=== PATIENT | male | born 1945 | race Caucasian/White ===

== ENCOUNTER 2017-04-08 11:15 | Observation (INO) | payer OTHER ==
[2017-04-08] VITALS (8 sets, daily range): BP systolic 140–164; BP diastolic 60–77; PULSE 57–71; TEMP 36.5–36.9; O2SAT 94–98; Ht 177.8 cm; Wt 66.9 kg
[~2017-04-08] VITALS: Ht 177.8 cm; Wt 66.9 kg
--- NOTE | 2017-04-08 11:35 | History & Physical Bridge Note ---
H&P Re-Evaluation Bridge Note: I have examined the patient, reviewed the History & Physical and in the interval since the performance of the History & Physical I have noted the following changes of clinical significance: No changes noted
--- NOTE | 2017-04-08 11:36 | Procedure Note ---
Pre-Mod Sedation Assessment General Date of Moderate Sedation: Apr 08, 2017. Review Cardiovascular: regular rate, rhythm Abdomen: soft Lungs: lungs clear Airway Class: II Pre-Sedation Airway Assessment Oral Cavity: Dental Abnormalities Short Thick Neck: No Hx of Sleep Apnea: No Smoking Status: Former Smoker Mallampati Classification: Class II ASA Classification: Class II Procedure Planning Contraindications-for Mod Sed: None Yes Notes The planned sedation has been discussed with the patient and consent obtained. I have identified the patient, determined the appropriateness of sedation and have assessed the patient immediately prior to the procedure. All medicine(s) and interventions are by my order.
[2017-04-08] MEDS ORDERED: NTRGSL/4 UT (11:55)
[2017-04-08] MEDS ORDERED: LISI-729 PO (11:55)
[2017-04-08] MEDS ORDERED: METO1TAB31 PO (11:55)
[2017-04-08] MEDS ORDERED: ATOR10TA88 PO (11:55)
[2017-04-08] MEDS ORDERED: ASPI81TA28 PO (11:55)
[2017-04-08] MEDS ORDERED: CEFAZOLIN 1000MG/55 ML D5W IV SCH (12:00)
[2017-04-08] MEDS ORDERED: LIDOCAINE HCL 1% 20 ML VIAL ONE (12:56)
[2017-04-08] MEDS ORDERED: BACITRACIN 50000 UNIT VIAL ONE (12:56)
[2017-04-08] MEDS ORDERED: BUPIVACAINE 0.5 % 5 MG/1 ML MPF 30ML VIAL ONE (12:56)
[2017-04-08] MEDS ORDERED: FENTANYL CITRATE INJ 50 MCG/1 ML 2 ML VIAL ONE ×2 (13:22→13:50)
[2017-04-08] MEDS ORDERED: MIDAZOLAM HCL 5 MG/ML 1 ML VIAL ONE ×2 (13:22→13:50)
--- NOTE | 2017-04-08 14:44 | Procedure Note ---
Post-Mod Sedation Assessment General Date of Moderate Sedation Apr 08, 2017. Vital Signs: Vital Signs Past 12 Hours Date Time Temp Pulse Resp B/P (MAP) Pulse Ox O2 Delivery O2 Flow Rate FiO2 04/08/17 14:38 60 14 122/70 (87) 98 Room Air 04/08/17 12:25 36.6 18 140/60 (86) 98 Room Air 04/08/17 12:06 36.6 71 18 140/60 (86) 98 Room Air Review - Discharge Criteria Vital Signs Stable: Yes Alert/Oriented/Conversant: Yes Returned to Baseline Mental St: Yes Nausea Absent/Minimal: Yes Pain/Discomfort/Absent/Minimal: Yes Normal/Baseline Respirations: Yes Active Bleeding?: No Pt Received D/C Instructions: N/A Prescriptions Given: None Specific Proced. D/C Criteria Distal Pulses Present (Cardiac: N/A Groin site assessed-Card Cath: N/A Voided Prior To Discharge: N/A Discharged Patients Adult Escort/Transportation: N/A
[2017-04-08] MEDS ORDERED: ACETAMINOPHEN 325 MG TAB PO PRN (14:45)
[2017-04-08] MEDS ORDERED: NITROGLYCERIN 0.4 MG SL PER TAB CHARGE UT SCH (14:45)
--- NOTE | 2017-04-08 14:51 | [facility] Post Operative Brief Note ---
Immediate Operative Summary Operative Date Apr 08, 2017. Pre-Operative Diagnosis ICM, SINUS BRADYCARDIA, SYNCOPE Post-Operative Diagnosis SAME Procedure(s) Performed DUAL CHAMBER RATE RESPONSIVE ICD WITH PERIPHERAL VENOGRAM Surgeon LUPIS CLOUD Carton Maker Surgeon(s) NONE Estimated Blood Loss <10CC Findings DATE OF OPERATION: 04/08/2017 PREOPERATIVE DIAGNOSES: Ischemic cardiomyopathy, syncope, Sinus bradycardia POSTOPERATIVE DIAGNOSES: Same. PROCEDURE: Dual chamber rate responsive implantable cardiac defibrillator under fluoroscopic guidance along with peripheral venogram. SURGEON: Lupis Cloud DO METER INSTALLER AND REMOVER: None. ANESTHESIA: Monitored conscious sedation given under my supervision, administered by Ashley Mireles, start time 13:32, end time 14:38, a total of 6 mg of Versed and 150 mcg of fentanyl. INTRAVENOUS FLUIDS: 300 mL. CONTRAST: 10 mL of IV contrast. COMPLICATIONS: None. CONDITION: Stable. BLOOD LOSS: Less than 10 mL. URINE OUTPUT: Not applicable. SPECIMENS: None. FINDINGS: None. DRAINS: None. INDICATIONS FOR PROCEDURE: This is a 72-year-old gentleman with a past medical history of ischemic cardiomyopathy, ejection fraction 35%, syncope- currently wearing a lifevest, sinus bradycardia, Non specific IVCD, HTN, HLD, coronary artery disease h/o [place] in 1991 no intervention, history of tobacco use. Due to the ICM and syncope and SB recommend ICD. CONSENT: The patient was informed of the risks, benefits, alternatives to the procedure. Risks include but not limited to sudden cardiac ; cardiac arrhythmias; cerebrovascular accident; myocardial infarction; injury to the blood vessels, chamber of the heart, lungs, bleeding and infection. The patient understood these risks and agreed to go to the procedure as planned. Informed consent was obtained. DESCRIPTION OF THE PROCEDURE: The patient was brought into the electrophysiology lab in a fasting state. He was connected to continuous cardiac monitoring. Timeout was performed to ensure patient's identity and procedure correctly. The patient received prophylactic antibiotics prior to incision. He was given monitored conscious sedation throughout the procedure for patient's comfort level. [place] precautions were maintained throughout the procedure. A 10 mL of 1% lidocaine, bupivacaine mixture were given in the left deltopectoral. Incision was made in the left deltoid repair. Blunt dissection was performed down to identify the cephalic vein; however, none could be identified, so a peripheral venogram was performed using 10 mL of IV contrast diluted in 10 mL of saline followed by 20 mL flush. The axillary vein was then obtained with axillary venous access stick. A 9n 8-Surinamese sheath was inserted over the guidewire without any resistance. The dilator was removed and a second guidewire was inserted through the 8-Surinamese sheath without any resistance and the sheath was removed. A 9.5-Surinamese sheath was inserted over one of the guidewires without any resistance. The guidewire and dilator were removed. The right ventricular defibrillator lead was advanced into the right ventricle and positioned into the right ventricular apex under fluoroscopic guidance. There was adequate pacing and sensing thresholds and no diaphragmatic stimulation with high output pacing. The sheath was peeled away and lead was fixated to pectoralis muscle using 0 silk suture. The 8-Surinamese sheath was then advanced over the retained guidewire without any resistance. The guidewire and dilator were removed. The right atrial pacing lead was advanced into the right atrium and positioned into the right atrial appendage under fluoroscopic guidance. There was adequate pacing and sensing thresholds. There was no diaphragmatic stimulation when we paced briefly at 10 volts. The sheath was peeled away and lead was fixated to pectoralis muscle using 0 silk suture. A pacemaker pocket was created using blunt dissection over the pectoralis muscle within the pectoralis fascia. The pocket was flushed with copious amounts of bacitracin saline wash and inspected for hemostasis. The defibrillator generator was then attached to the leads making sure that the pins were in appropriate position, passed the set screws and the set screws were all tightened. The defibrillator was placed in the pocket, making sure that the leads were lying flat beneath the device. The incision was closed in a 3-layer fashion using 2-0 Vicryl suture, followed by a 3-0 Vicryl suture, followed by a 4-0 Monocryl running stitch and Dermabond applied. EQUIPMENT: 1. Defibrillator generator is an [employer] XT DR Virk [id number], serial number [id number]. 2. Right atrial lead: Medtronic 5076-52 cm, serial number [id number]. 3. Right ventricular lead: Medtronic 6935-62 cm, serial number [id number]. INTRAOPERATIVE TESTIN. Right atrial lead: P-wave 2.4 millivolts, impedance 578 ohms, threshold 0.7V at 1.3ms. 2. Right ventricular lead: R-wave 3.3millivolts, impedance 614 ohms, threshold 0. volts at 0.7 milliamps. FINAL MEASUREMENTS THROUGH THE DEVICE: 1. Right atrial lead: Fib waves 1.4millivolts, impedance 456 ohms; threshold 1.0V at 0.4ms. 2. Right ventricular lead: R-wave 5.1 millivolts, impedance 551 ohms, threshold 0.75 volts at 0.4 milliseconds. FINAL PARAMETERS: 1. MVP-R 60/120. Right atrial and right ventricular amplitude 3.5 volts, pulse width 0.4 milliseconds, sensitivity 0.3 millivolts. 2. VF zone at 200 beats per minute, . 3. RA and RV amplitude 3.5V, pulse width 0.4ms; sensitivity 0.3mV INTERVAL IMPRESSION: Successful implantation of a dual chamber implantable cardiac defibrillator rate responsive secondary to ischemic cardiomyopathy and sinus bradycardia. PLAN: Monitor the patient overnight, 12-lead ECG, chest x-ray, continue his home medications. He is not allowed to lift the left elbow over the left shoulder for 1 month and he cannot lift more than 10 pounds with the left arm for 2 weeks. He can shower tomorrow, let water run over the incision and do not scrub it. He will follow up in our [place] device clinic in 7-10 days for device and wound check. Fluids (cc crystalloids) 300 Specimens none Anesthesia 6mg versed and 150mcg fentanyl Complication(s) None Disposition PCU
--- NOTE | 2017-04-08 15:07 | Discharge Instructions ---
Discharge Instructions Date of Service Apr 08, 2017. Admission Reason for Admission: Ischemic Cardiomyopathy Discharge Discharge Diagnosis / Problem: ICM s/p dual chamber ICD, Incidental cystic bleb on CXR , CT Discharge Goals Goal(s): Improve function Activity Recommendations Activity Limitations: as noted below Lifting Limitations: no more than 10 pounds (with left arm for 2 weeks; do not lift the left elbow over the left shoulder for 1 month) Exercise/Sports Limitations: as tolerated May Resume Sexual Activity: after one week Shower/Bathe: tomorrow Driving or Machine Use: resume 1 day after discharge . Instructions / Follow-Up Instructions / Follow-Up ACTIVITY RECOMMENDATIONS: * Do not raise affected arm over head for 4 weeks. SPECIAL CARE INSTRUCTIONS: * If bleeding occurs, apply direct pressure to area for 5 minutes. * Call your doctor if you have severe pain, fever, drainage or bleeding at site. * Keep dry for 24 hours then remove. * Keep any scheduled doctor's appointment. * Implant Card - hand held device with website information given. SKIN IRRITATION: * You may experience some redness and/or swelling in the area where radiation was administered. If any skin irritation occurs, please contact your family physician. FOLLOW UP : Case discussed with pulmonary med. CXR , CT finding likely a bleb. There is no clinical evidence of infection. This is not related to the AICD implant and is related to his history of emphysema. Outpatient non contrast CT of chest recommended as outpatient in 4 weeks which can be performed in [place] with primary slab puller Dr Weeks or differed to PCP. Patient already has a visit with Dr Weeks, so I will contact her to coordinate. Stable for Discharge. APPOINTMENTS: 04/17/2017 10:25 AM Dana Weeks MD Cardiology [facility] Current Hospital Diet Patient's current hospital diet: Low Sodium Diet (2gm Na), AHA Diet (Heart Healthy) Discharge Diet Recommended Diet: AHA Diet (Heart Healthy), Low Sodium Diet (2gm Na) Procedures Procedures Performed: DUAL CHAMBER RATE RESPONSIVE ICD WITH PERIPHERAL VENOGRAM Pending Studies Studies pending at discharge: no Medical Emergencies . Who to Call and When: Medical Emergencies: If at any time you feel your situation is an emergency, please call 911 immediately. . Non-Emergent Contact Non-Emergency issues call your: Bar Porter . . "Provider Documentation" section prepared by Lupis Cloud. . VTE Core Measure Inpt VTE Proph given/why not?: Treatment not indicated
--- NOTE | 2017-04-08 15:12 | Discharge Summary ---
Discharge Summary Date of Service Apr 08, 2017. Discharge Summary Admission Date: Discharge Date: Apr 09, 2017 Discharge Disposition: Home Principal Diagnosis: ICM s/p dual chamber ICD Secondary Diagnoses/Problems: sinus bradycardia syncope non-specific IVCD CAD h/o [place] in 1991 no intervention HTN HLD h/o Tobacco use Procedures: dual chamber rate responsive ICD under fluoroscopic guidance with peripheral venogram Medication Reconciliation Continued Medications: Aspirin (Aspirin Ec) 81 Mg Tab 81 MG PO DAILY Atorvastatin (Lipitor) 10 Mg Tab 10 MG PO DAILY, TAB Lisinopril (Prinivil) 5 Mg Tab 5 MG PO DAILY, TAB Metoprolol Succinate (Toprol Xl) 25 Mg Tab 0.5 TAB PO DAILY for 30 Days, #15 TAB 5 Refills Nitroglycerin (Nitrostat) 0.4 Mg Tab 0.4 MG UT PRN for Chest Pain, BTL Admission Information Physical Exam (per Admitting): aaox3, NAD NC/AT, EOMI Supple, No JVD Nrl S1/S2, No murmur CTA b/l No W/r/r soft NT/ND No edema b/l No focal deficits skin intact Hospital Course Pt admitted for elective dual chamber ICD due to ICM and sinus bradycardia. He underwent procedure without any complications. He was monitored overnight. Post procedure CXR revealed a 3.5 cm cyst consistant with a bleb related to his emphysema. This was an incidental findings and not due to his AICD implant. There is no clinical evidence of infection. At Ct of the chest was obtained and pulmonary medicine saw the patient in consult and recommended follow up non contrast CT of chest in 4 weeks as outpatient for follow up. Total time spent on discharge = 30 minutes This includes examination of the patient, discharge planning, medication reconciliation, and communication with other providers. Discharge Instructions ACTIVITY RECOMMENDATIONS: * Do not raise affected arm over head for 4 weeks. SPECIAL CARE INSTRUCTIONS: * If bleeding occurs, apply direct pressure to area for 5 minutes. * Call your doctor if you have severe pain, fever, drainage or bleeding at site. * Keep dry 24 hours. * Keep any scheduled doctor's appointment. * Implant Card - hand held device with website information given. SKIN IRRITATION: * You may experience some redness and/or swelling in the area where radiation was administered. If any skin irritation occurs, please contact your family physician. FOLLOW UP VISIT: Keep any scheduled doctor appointments. Patient has cardiology visit with his primary bed maker : 04/17/2017 10:25 AM Dana Weeks MD Cardiology [place] [facility]
[2017-04-08] MEDS ORDERED: IV FLUIDS COMPLETED PRN (16:00)
[2017-04-09 03:13] VITALS: BP 147/67; PULSE 59; TEMP 37.1; O2SAT 93
[2017-04-09 08:01] VITALS: BP 154/65; PULSE 68; TEMP 36.5; O2SAT 94
--- NOTE | 2017-04-09 08:20 | DIAGNOSTIC IMAGING REPORT ---
CHEST 2 VIEWS ROUTINE CLINICAL HISTORY: 72 years-old Male presenting with EXACT TIME ORDERED Evaluate for pneumothorax and lead placement. TECHNIQUE: PA and lateral views of the chest were obtained. COMPARISON: None. FINDINGS: Left-sided implanted cardiac defibrillator with leads to the right atrium and right ventricular apex. Median sternotomy wires and mediastinal surgical clips noted. Cardiomediastinal silhouette normal. Air-fluid level noted within a cystic appearing lesion in the right lower lobe, which measures 4.8 cm. No pleural effusion. No pneumothorax. Osseous structures and upper abdomen normal. IMPRESSION: 1. No pneumothorax. Appropriately positioned ICD. 2. Cystic lesion in the right lower lobe containing an air-fluid level. In the setting of infectious symptoms, this is concerning for a lung abscess. Other differential considerations include hemorrhage within a cavitary space. Further evaluation with CT to be considered. The report will be called/faxed according to standard departmental protocol. Electronically signed by: Christopher Larry M.D. 04/09/2017 8:19 AM Dictated Date/Time: 04/09/2017 8:15 AM
[2017-04-09] MEDS ORDERED: ATORVASTATIN 10 MG TAB PO SCH (09:00)
[2017-04-09] MEDS ORDERED: ASPIRIN 81 MG ECTAB PO SCH (09:00)
[2017-04-09] MEDS ORDERED: LISINOPRIL 5 MG TAB PO SCH (09:00)
[2017-04-09] MEDS ORDERED: METOPROLOL SUCC 25MG EXT REL TAB PO SCH (09:00)
[2017-04-09] MEDS ORDERED: OPTIRAY 320 IV PRN (10:15)
--- NOTE | 2017-04-09 10:18 | Cardiology Follow-Up ---
Subjective General Date of Service: Apr 09, 2017. Chief Complaint: follow up AICD placement Pt evaluation today including: conversation w/ patient, physical exam History of Present Illness The patient is a 72 year old male who had undergone elective implant of a dual chamber Medtronic AICD yesterday, 04/08/17, due to his diagnosis of coronary heart disease, ischemic heart myopathy with an ejection fraction of 35% and syncope. The patient tolerated the procedure well yesterday. He is in good spirits today and feels well and is eager to be discharged. His postprocedure device check reveals stable findings. Telemetry reveals sinus rhythm with occasional atrial pacing which is consistent with the data from his device interrogation. Chest x-ray reveals appropriate lead placement. Chest x-ray also reveals an incidental finding of an air-fluid level noted within a cystic appearing lesion in the right lower lobe, which measures 4.8 cm. Allergies Coded Allergies: No Known Allergies (Unverified , 04/08/17) Social History Smoking Status: Current Some Day Smoker Hx Tobacco Use In Past Year?: Yes Hx Alcohol Use - Type And Amou: No Hx Substance Use - Type And Am: No Physical Exam Vital Signs Last Vital Signs Documentation Date Time Temp Pulse Resp B/P (MAP) Pulse Ox O2 Delivery O2 Flow Rate FiO2 04/09/17 08:01 36.5 68 16 154/65 (94) 94 Room Air Physical Exam Constitutional: Level of Distress: NAD ENMT: normal ENT inspection Neck: supple, trachea midline Lungs: Auscultation: no wheezing, no rales/crackles, no rhonchi Cardiovascular: Heart Auscultation: RRR, no murmurs, no rubs, no gallops Abdomen: Inspection & Palpation: soft, non-distended Extremities: no cyanosis, no edema Neurologic: Gait & Station: pertinent finding (focal neurologic deficits patient is awake and conversant and follows commands) Additional Comments: Chest: Left infraclavicular device pocket site is stable with mild incisional erythema and no drainage, no hematoma. Assessment and Plan Assessment and Plan Impression: 72-year-old male 1. Postoperative day one status post dual-chamber Medtronic AICD -Chest x-ray reveals appropriate lead placement and no pneumothorax -Chest x-ray also reveals an incidental finding of an air-fluid level noted within a cystic appearing lesion in the right lower lobe, which measures 4.8 cm. 2. History of coronary heart disease, ischemic cardiomyopathy, LVEF 35%, syncope 3. History of multivessel disease, status post CABG in 2010 4. Ongoing cigarette smoker Discussion/plan: The patient describes no infectious symptoms. He denies any cough. He denies any fevers. Most of his medical care has taken place in [place] and in [place]. I reviewed his outpatient [facility] chart and he has not had any recent CT of the chest. His last chest x-ray was a portable PA study in 2014 that revealed no significant findings, and AP and lateral chest x-ray had last been performed in 2011. I discussed the findings with Dr. Larry of radiology and will proceed with a contrast-enhanced CT of the chest. I'm also going to consult pulmonary medicine for further input. The patient is stable for discharge from a post-device implant standpoint however given the incidental finding on the chest x-ray, I told the patient he needs to stay in the hospital for initial workup. tSar Weathers DO, FACC, FACOI Associate Dice Dealer [facility], [facility] Laboratory Results Last 24 Hours Test 04/08/17 11:51 Bedside Glucose 116 mg/dl
--- NOTE | 2017-04-09 11:08 | DIAGNOSTIC IMAGING REPORT ---
(CHEST) THORAX WITH CLINICAL HISTORY: 72 years-old Male presenting with abnormal chest x -ray, cystic finding. TECHNIQUE: Multidetector CT angiography was performed after the administration of intravenous contrast. IV contrast: 93 mL of Optiray 320. COMPARISON: Correlation made to chest x-ray performed the same day. CT DOSE: The estimated cumulative dose is 323.34 mGy.cm. FINDINGS: Hand Sizer topogram: Left-sided implanted cardiac defibrillator with leads to the right atrium and right ventricular apex. Median sternotomy wires also noted. On soft tissue windows, extensive subcutaneous and soft tissue emphysema in the left upper anterior chest wall likely related to recent ICD placement. Normal thyroid and thoracic inlet. No axillary, supraclavicular, mediastinal, or hilar lymphadenopathy. Atherosclerosis of the aortic arch. Left ventricular enlargement of the heart. Coronary artery calcification. No pericardial or pleural effusion. Upper abdomen demonstrates moderate stool burden. On lung windows, cavitary/cystic lesion the azygos esophageal recess of the right lower lobe measuring 3.5 cm in diameter and containing an air-fluid level. Fluid within the lesion is fairly low-density and not consistent with hemorrhage. The lesion is thin-walled without nodularity. Adjacent endobronchial filling defects. Minimal atelectasis. On bone windows, multilevel degenerative changes of the thoracic spine. IMPRESSION: 1. Cavitary/cystic lesion the right lower lobe with an air-fluid level. The thin wall suggests against a neoplastic process. This may represent an infected pneumatocele. The presence of adjacent endobronchial filling defects could relate to mucous plugging. However, follow-up imaging after trial of antibiotics should be obtained to confirm resolution of the endobronchial abnormality. If this persists, bronchoscopy to be considered. Electronically signed by: Christopher Larry M.D. 04/09/2017 11:07 AM Dictated Date/Time: 04/09/2017 10:52 AM
[2017-04-09 11:29] LABS: BASO % 0.1 %; BASO ABS # 0.01 K/uL (0-0.2); EOS % 0.5 %; HEMATOCRIT 43.7 % (42-52); IG% 0.1 %; LYMPH % 18.7 %; MEAN CELL VOLUME 89.5 fL (80-100); MEAN CORPUSCULAR HEMOGLOBIN 31.8 pg (25-34); MEAN PLATELET VOLUME 9.3 fL (7.4-10.4); MONO % 9.6 %; PLATELET COUNT 202 K/uL (130-400); RED BLOOD COUNT 4.88 M/uL (4.7-6.1); WHITE BLOOD COUNT 8.55 K/uL (4.8-10.8)
[2017-04-09 11:53] LABS: COMPLETE YES; MEAN CORPUSCULAR HGB CONC 35.5 g/dl (32-36)
[2017-04-09 11:54] VITALS: BP 149/78; PULSE 64; TEMP 36.9; O2SAT 95
[2017-04-09 12:02] LABS: BUN/CREATININE RATIO 14.3 (10-20); CALCIUM 9.4 mg/dl (8.5-10.1); POTASSIUM 4.3 mmol/L (3.5-5.1)
[2017-04-09 12:04] LABS: ALB/GLOB RATIO 1.1 (0.9-2)
--- NOTE | 2017-04-09 13:27 | Cardiology Progress Note ---
Cardiology Progress Note Date of Service Apr 09, 2017. Cardiology Progress Note Case discussed with pulmonary med. CXR , CT finding likely a bleb. This is not related to the AICD implant. Outpatient non contrast CT of chest recommended as outpatient in 4 weeks which can be performed in [place] with Dr Cloud or PCP. Stable for Discharge. Elva Weathers DO
[2017-04-09 13:42] VITALS: BP 149/78; PULSE 64; TEMP 36.9; O2SAT 95
--- NOTE | 2017-04-09 13:50 | Pulmonary Consultation ---
History General Date of Service: Apr 09, 2017. Stated Complaint: Ischemic Cardiomyopathy HPI The patient is a 72 year old male who presents to [facility] with complaints of Ischemic Cardiomyopathy. The patient's primary care provider is Yecenia Hernandez. Mr. Ayoub is 72 year old male with coronary artery disease s/p CABG, ischemic cardiomyopathy with an EF 35% and syncope who was admitted for elective implantation of dual chamber ICD which was done yesterday 04/08/17. On post procedure CXR for lead placement an incidental finding of 4.8 cm thin walled cystic lesion with air-fluid level was noted on right lower lobe. CT chest w/o contrast was done to further evaluate the lesion that was consistent with a pneumatocele. Patient has long history of tobacco use and is current tobacco smoker with over 40 ppd smoking history. He states that he has history of asthma as child, but has been asymptomatic in adulthood. He denies any fever, chills, cough, chest pain, shortness of breath, dyspnea on exertion, weight loss, hemoptysis or night sweats. He denies any recent sick contacts or respiratory infections. He denies any trauma to chest. He has unlimited exercise tolerance, denies PND, orthopnea or lower extremity edema. He has not had routine LDCT for lung cancer screening. Historian: patient Review of Systems Constitutional: reports: no symptoms Eyes: reports: no symptoms ENT: reports: no symptoms Cardiovascular: reports: as stated in HPI Respiratory: reports: no symptoms Gastrointestinal: reports: no symptoms Genitourinary - Male: reports: no symptoms Integumentary: reports: no symptoms Neurologic: reports: no symptoms Psychiatric: reports: no symptoms Endocrine: no symptoms Hematologic / Lymphatic: no symptoms All Other Symptoms All Other Systems: Reviewed and Negative Past Medical History Past Medical History: DM-2 HLD HTN CAD with h/o PR Systolic HF EF 35% Tobacco abuse disorder Past Surgical History: CABG, left heart cath--2010 ICD yesterday Social History Mother age 79--DM/HTN Father age 86--pulmonary embolism Daughter --age unknown Hx Tobacco Use In Past Year?: Yes Smoking Status: Heavy Tobacco Smoker Alcohol: no current use Drug Use: none Marital status: Housing status: lives with family Occupational Status: retired Immunizations History of Influenza Vaccine: Unknown History of Tetanus Vaccine?: Unknown History of Pneumococcal: Unknown History of Hepatitis B Vaccine: Unknown Other Immunizations?: Unknown Allergies Coded Allergies: No Known Allergies (Unverified , 04/08/17) Current Medications Reported Home Medications Medications Dose Route/Sig Max Daily Dose Days Date Category Aspirin Ec (Aspirin) 81 Mg Tab 81 Mg PO DAILY 04/08/17 Reported Lipitor (Atorvastatin Calcium) 10 Mg Tab 10 Mg PO DAILY 04/08/17 Reported Nitrostat (Nitroglycerin) 0.4 Mg Tab 0.4 Mg UT PRN 04/08/17 Reported Toprol Xl (Metoprolol Succinate) 25 Mg Tab 0.5 Tab PO DAILY 30 04/08/17 Reported Prinivil (Lisinopril) 5 Mg Tab 5 Mg PO DAILY 04/08/17 Reported Physical Physical Exam Vital Signs: Date Time Temp Pulse Resp B/P (MAP) Pulse Ox O2 Delivery O2 Flow Rate FiO2 04/09/17 12:00 Room Air 04/09/17 11:54 36.9 64 16 149/78 (101) 95 Room Air 04/09/17 08:01 36.5 68 16 154/65 (94) 94 Room Air 04/09/17 08:00 Room Air 04/09/17 04:00 Room Air 04/09/17 03:13 37.1 59 17 147/67 (93) 93 Room Air 04/09/17 00:00 Room Air 04/08/17 23:16 36.9 57 17 164/74 (104) 94 Room Air 04/08/17 20:05 36.5 59 18 144/76 (98) 94 Room Air 04/08/17 20:00 96 Room Air 04/08/17 15:30 96 Room Air 04/08/17 15:26 96 Room Air 04/08/17 15:23 36.7 63 16 148/77 (100) 96 Room Air 04/08/17 15:00 60 14 124/70 (88) 98 Room Air 04/08/17 15:00 62 14 122/70 (87) 98 Room Air 04/08/17 14:53 60 14 128/68 (88) 98 Room Air 04/08/17 14:38 60 14 122/70 (87) 98 Room Air General Appearance: WELL-APPEARING, NO APPARENT DISTRESS, severe distress Head: NORMOCEPHALIC Eyes: PERRLA, NO DISCHARGE, EOMI, SCLERAE NORMAL ENT: NORMAL NASAL EXAM, NORMAL MOUTH EXAM, NORMAL THROAT EXAM Neck: NORMAL RANGE OF MOTION, NO TENDERNESS, SUPPLE Respiratory: BREATH SOUNDS NORMAL, CLEAR TO AUSCULTATION, NO RESPIRATORY DISTRESS, NO TENDERNESS, other (chest wall notable for sternotomy scar, erythematous at new incision site of ICD) Cardiovasular: REGULAR RATE/RHYTHM, NORMAL S1S2, NO M/G/R Abdomen: NON TENDER, NORMAL BOWEL SOUNDS Back: NORMAL INSPECTION Upper Extremities: NO EDEMA, NO DEFORMITY, NORMAL ROM Lower Extremities: NO EDEMA, NO DEFORMITY Neuro: ALERT, ORIENTED x 3, NORMAL MOTOR EXAM Psychiatric: NORMAL AFFECT, NO SUICIDAL IDEATION Diagnostics Labs Results Past 24 Hours Test 04/09/17 11:04 Range/Units White Blood Count 8.55 4.8-10.8 K/uL Red Blood Count 4.88 4.7-6.1 M/uL Hemoglobin 15.5 14.0-18.0 g/dL Hematocrit 43.7 42-52 % Mean Corpuscular Volume 89.5 80-100 fL Mean Corpuscular Hemoglobin 31.8 25-34 pg Mean Corpuscular Hemoglobin Concent 35.5 32-36 g/dl Platelet Count 202 130-400 K/uL Mean Platelet Volume 9.3 7.4-10.4 fL Neutrophils (%) (Auto) 71.0 % Lymphocytes (%) (Auto) 18.7 % Monocytes (%) (Auto) 9.6 % Eosinophils (%) (Auto) 0.5 % Basophils (%) (Auto) 0.1 % Neutrophils # (Auto) 6.07 1.4-6.5 K/uL Lymphocytes # (Auto) 1.60 1.2-3.4 K/uL Monocytes # (Auto) 0.82 0.11-0.59 K/uL Eosinophils # (Auto) 0.04 0-0.5 K/uL Basophils # (Auto) 0.01 0-0.2 K/uL RDW Standard Deviation 44.9 36.4-46.3 fL RDW Coefficient of Variation 13.6 11.5-14.5 % Immature Granulocyte % (Auto) 0.1 % Immature Granulocyte # (Auto) 0.01 0.00-0.02 K/uL Sodium Level 138 136-145 mmol/L Potassium Level 4.3 3.5-5.1 mmol/L Chloride Level 104 98-107 mmol/L Carbon Dioxide Level 30 21-32 mmol/L Anion Gap 4.0 3-11 mmol/L Blood Urea Nitrogen 14 7-18 mg/dl Creatinine 1.00 0.60-1.40 mg/dl Est Creatinine Clear Calc Drug Dose 61.3 ml/min Estimated GFR () 85.6 Estimated GFR (Non- 73.8 BUN/Creatinine Ratio 14.3 10-20 Random Glucose 129 70-99 mg/dl Calcium Level 9.4 8.5-10.1 mg/dl Total Bilirubin 0.7 0.2-1 mg/dl Aspartate Amino Transf (AST/SGOT) 9 15-37 U/L Alanine Aminotransferase (ALT/SGPT) 17 12-78 U/L Alkaline Phosphatase 64 45-117 U/L Total Protein 7.0 6.4-8.2 gm/dl Albumin 3.6 3.4-5.0 gm/dl Globulin 3.4 2.5-4.0 gm/dl Albumin/Globulin Ratio 1.1 0.9-2 Microbiology Results 04/09/17 Blood Culture, Received Pending 04/09/17 Blood Culture, Received Pending Diagnostic Radiology CT chest w/o contrast--. Cavitary/cystic lesion the right lower lobe with an air-fluid level. The thin wall suggests against a neoplastic process. This may represent an infected pneumatocele. The presence of adjacent endobronchial filling defects could relate to mucous plugging. Impression Assessment and Plan Pneumatocele 72 year old male with extensive cardiac history who is Day #1 s/p ICD placement for CAD, ischemic cardiomyopathy and syncope. On post procedure imaging a large cystic lesion was found in the right lower lobe. This mostly likely represents a pneumatocele from a ruptured bleb, infection or trauma. This could also represent malignancy, but due the structure being thin-walled this is less likely. Most times, pneumatoceles are asymptomatic as in this case and resolve spontaneously. If patients do have symptoms of fever, chills, cough a course of antibiotics usually suffices. Rarely is surgical intervention warranted. I explained to patient that this can be nidus for infection and can cause pneumothorax. So if he should develop respiratory symptoms he should seek medical care emergently. At this time, I recommend that patient have repeat imaging in 6-8 weeks. He should follow up with pulmonary as an outpatient as well. I encouraged smoking cessation, but he is not ready as yet. He can resume all activities per cardiology's and primary team recommendations. Appreciate the consult.
== END 2017-04-09 14:37 | disposition home or self-care (01) ==
LOC: C.ACU 11:15 → C.2T 14:44 → ENRESERV 14:56
PROVIDERS: ADMIT Internal Medicine; ATTEND Internal Medicine
DX: I25.5 Ischemic cardiomyopathy (principal); R55 Syncope and collapse; R00.1 Bradycardia, unspecified; I25.2 Old myocardial infarction; I25.10 Atherosclerotic heart disease of native coronary artery without angina pectoris; I10 Essential (primary) hypertension; F17.210 Nicotine dependence, cigarettes, uncomplicated; E11.9 Type 2 diabetes mellitus without complications; E78.5 Hyperlipidemia, unspecified; Z79.82 Long term (current) use of aspirin; Z98.61 Coronary angioplasty status; Z83.3 Family history of diabetes mellitus; Z82.49 Family history of ischemic heart disease and other diseases of the circulatory system